=== PATIENT | male | born 1950 | race Caucasian/White ===

== ENCOUNTER 2016-10-15 22:44 | Inpatient (IN) | payer MEDICARE, OTHER ==
[2016-10-15 23:31] LABS: Hematocrit 26.5 % (42.0-52.0); Hemoglobin 9.3 gm/dL (13.5-18.0); Mean Cell Volume 84.7 fl (78-100); Mean Corpuscular Hemoglobin 29.7 pg (27-31); Mean Corpuscular Hgb Conc 35.1 g/dl (32-36); Mean Platelet Volume 7.7 fl (6.0-9.5); Neutrophil # 5.6 K/mm3 (1.3-6.0); Neutrophil % 73.7 % (42-75.0); Platelet Count 253 K/mm3 (150-450); Red Blood Count 3.13 M/mm3 (4.7-6.0); Red Cell Distribution Width 13.6 % (11.5-14.0); White Blood Count 7.6 K/mm3 (4.0-10.5)
[2016-10-15 23:44] LABS: Prothrombin Time (Patient) 10.5 Seconds (9.4-11.4)
[2016-10-15 23:45] LABS: INR 1.01 INR (0.90-1.10); Partial Thrombolplastin Time 28.7 Seconds (24-32)
[2016-10-15] MEDS ORDERED: NORMAL SALINE 1,000 ML IV ONE (23:45)
[2016-10-15 23:47] LABS: Albumin * 3.3 gm/dl (3.4-5.0); Anion Gap 12.9 mmol/L (6.8-13.8); BUN/Creatinine Ratio 16.8 (9.0-21.6); Bilirubin, Total 0.4 mg/dL (0.0-1.1); Ca. Corrected For Albumin 9.1 mg/dL (8.4-10.2); Calcium * 8.9 mg/dL (7.9-10.9); Carbon Dioxide 30.2 mmol/L (24-32.6); Potassium 3.1 mmol/L (3.4-4.6); Total Protein 6.8 gm/dL (6.2-8.2)
[2016-10-16] MEDS ORDERED: NORMAL SALINE 1,000 ML IV ONE ×2 (00:25→02:16)
--- NOTE | 2016-10-16 01:15 | ERNOTE ---
GI Bleeding/Rectal Pain ER Presenting Symptoms: rectal bleeding, dark/tarry stools Time Seen by Provider: 10/15/16 23:25 Source: patient Exam Limitations: no limitations Immunizations: IMMUNIZATION HX Immunizations Up to Date Yes History of Influenza Vaccine Yes Hx Pneumococcal Vaccination Yes Allergies/Adverse Reactions: Allergies lisinopril Allergy (Verified 12/25/14 21:06) pregabalin [From Lyrica] Allergy (Verified 12/25/14 21:06) Home Medications: HOME MEDICATIONS Albuterol Sulfate [Proair Respiclick] 2 puff IH QID PRN 12/25/14 [Last Taken Unknown] Cilostazol [Pletal] 50 mg PO BID 12/25/14 [Last Taken Unknown] Diltiazem HCl [Diltiazem 24Hr Cd] 240 mg PO DAILY 12/25/14 [Last Taken Unknown] HYDROcodone/ACETAMINOPHEN [Hydrocodon-Acetaminophn 10-325] 1 tab PO Q6H PRN [Last Taken Unknown] Pramipexole Di-HCl [Mirapex] 1 mg PO HS 12/25/14 [Last Taken Unknown] Sildenafil Citrate [Viagra] 100 mg PO DAILY PRN 12/25/14 [Last Taken Unknown] Tamsulosin HCl [Flomax] 0.4 mg PO DAILY 12/25/14 [Last Taken Unknown] Losartan/Hydrochlorothiazide [Hyzaar 100-25 Tablet] 1 each PO DAILY 10/15/16 [ Last Taken Unknown] Plavix 75 mg PO DAILY 10/15/16 [Last Taken Unknown] Narrative: pt had sudden onset of bloody diarrhea this evening with dark blood liquid initially then followed by clots after a few BM's this evening Timing: getting worse Quality/Severity: Present: moderate Nausea/Vomiting: Present: none Abdominal Pain: Present: none Rectal Bleeding: Present: without stool - dark and with clots Associated Symptoms: Reports: constipation/hard stools - on occasion Review of Systems - Review of Systems Constitutional: Present: fatigue - for about a week.. Absent: recent illness, fever EYE: Present: no symptoms reported ENT: Present: no symptoms reported Respiratory: Absent: shortness of breath Cardiology: Absent: chest pain Gastrointestinal/Abdominal: Present: See HPI Genitourinary: Absent: frequency, dysuria Musculoskeletal: Absent: back pain, muscle pain Skin: Absent: rash Neurological: Present: dizziness/light-headedness - 1-2 days especially upon standing up Endocrine: Present: no symptoms reported Hematologic/Lymphatic: Absent: easy bruising, easy bleeding Psych: Present: no symptoms reported - Patient's Past Medical History Patient History - Medical: Alcohol Abuse, Chronic Pain, Other Patient History - Cardiac/Respiratory: Hypertension, Peripheral Vascular Disease Patient History - Cancer: No Hx of Cancer Patient History - Surgical Procedures: Back Surgery, Urology - vascular stents bilateral LE one month ago Patient History - Other: None - Family History mom Family History - Medical: , No pertinent hx Family History - Cardiac/Respiratory: No pertinent hx dad Family History - Medical: , No pertinent hx Family History - Cardiac/Respiratory: No pertinent hx - Social History Living Situations: home Abuse History: No History of abuse Psych History: No pertinent hx Smoking Status: Former smoker Have you smoked in the past 12 months: No Alcohol Use: heavy Drug Use: none - Immunizations Immunizations Up to Date: Yes Hx Pneumococcal Vaccination: Yes History of Influenza Vaccine: Yes Physical Exam - Physical Exam General Appearance: Present: wd/wn, alert, no apparent distress Head Exam: Present: normal inspection, no evidence of injury Ears, Nose, Throat: Present: normal ENT inspection Neck: Present: normal inspection, nontender Respiratory: Present: no respiratory distress, normal breath sounds, lungs clear Cardiovascular/Chest: Present: regular rate, rhythm Gastrointestinal/Abdominal: Present: nontender, nondistended, soft, abnormal bowel sounds - hyperactive Back Exam: Present: normal inspection, normal range of motion Extremity Exam: Present: normal inspection, normal range of motion, no edema Neurological Exam: Present: alert, oriented, normal mood/affect, no motor/ sensory deficits Skin Exam: Present: normal color, warm/dry Lymphatic Exam: Present: no adenopathy ED Progress - Results and Orders Patient's Lab Results:: I have reviewed the patient's lab results. Results and Orders: Laboratory Tests 10/15/16 10/15/16 10/15/16 23:25 23:25 23:25 WBC 7.6 Hgb 9.3 L Hct 26.5 L Plt Count 253 PT 10.5 INR (Anticoag Therapy) 1.01 PTT ([place]) 28.7 Sodium 123 L Potassium 3.1 L Chloride 83 L BUN 26 H Creatinine 1.55 H Random Glucose 134 H Calcium 8.9 Total Bilirubin 0.4 AST 97 H ALT 112 H Alkaline Phosphatase 124 Total Protein 6.8 Albumin 3.3 L Urine Color Urine Appearance Urine pH Ur Specific [place] Urine Protein Urine Glucose (UA) Urine Ketones Urine Blood Urine Nitrate Urine Bilirubin Urine Urobilinogen Ur Leukocyte Esterase Urine RBC Urine WBC Ur Epithelial Cells Urine Bacteria Urine Culture Comments 10/16/16 10/16/16 10/16/16 02:50 02:50 03:45 WBC Hgb 8.6 L Hct 24.3 L Plt Count PT INR (Anticoag Therapy) PTT ([place]) Sodium Potassium Chloride BUN Creatinine 1.32 Random Glucose Calcium Total Bilirubin AST ALT Alkaline Phosphatase Total Protein Albumin Urine Color Pale yellow Urine Appearance Slightly cloudy Urine pH 5.5 Ur Specific [place] <=1.005 Urine Protein Negative Urine Glucose (UA) Negative Urine Ketones Negative Urine Blood Negative Urine Nitrate Negative Urine Bilirubin Negative Urine Urobilinogen Normal Ur Leukocyte Esterase 500 H Urine RBC None seen Urine WBC >50 H Ur Epithelial Cells None seen Urine Bacteria 4+ H Urine Culture Comments Culture to follow - Vital Signs Patient's Vital Signs:: I have reviewed the patient's vital signs. Vital Signs: Vital Signs 10/15/16 10/15/16 10/15/16 22:50 23:19 23:46 Temperature 37.3 C Pulse Rate 95 87 92 Respiratory 18 12 12 Rate Blood Pressure 95/67 86/52 73/51 O2 Sat by Pulse 100 96 97 Oximetry 10/16/16 10/16/16 10/16/16 00:00 00:15 00:38 Temperature Pulse Rate 89 85 74 Respiratory 18 18 16 Rate Blood Pressure 77/53 77/45 90/50 O2 Sat by Pulse 97 94 93 Oximetry - CT/Ultrasound CT/Ultrasound Narrative: CT abd/pelvis: coronary artery calcifications Hepatic steatosis Mild bilateral perinephric stranding bilateral fat-containing inguinal hernias R>L scattered colonic diverticula 3 cm ulcer protruding from the posterior wall of the gastric fundus - Progress/Reassessment Chief Complaint: GI Bleed Progress Note-Subjective: 10/16/16 04:41 Spoke with Jesse HERNÁNDEZ hospitalist, she agrees to admit. Departure Clinical Impression: Acute GI bleeding Anemia Qualifiers: Anemia type: other cause Other causes of anemia: acute posthemorrhagic Qualified Code(s): D62 - Acute posthemorrhagic anemia - Departure Disposition: [facility] Condition: Fair
[2016-10-16] MEDS ORDERED: DIATRIZOATE MEGLUMINE, SODIUM 30 ML BTL PO ONE (02:02)
[2016-10-16] MEDS ORDERED: DIATRIZOATE MEGLUMINE, SODIUM 30 ML BTL ONE (02:03)
[2016-10-16 02:55] LABS: Hematocrit 24.3 % (42.0-52.0); Hemoglobin 8.6 gm/dL (13.5-18.0)
[2016-10-16 04:01] LABS: Urine Bilirubin Negative (NEGATIVE); Urine Blood Negative /ul (NEGATIVE); Urine Ketone Negative (NEGATIVE); Urine Nitrite Negative (NEGATIVE); Urine Protein Negative (NEGATIVE); Urine Specific Gravity <=1.005 SP.GR. (1.005-1.030); Urine Urobilinogen Normal (NORMAL); Urine pH 5.5 pH (5.0-7.0)
[2016-10-16 04:08] LABS: Urine Appearance Slightly Cloudy; Urine Color Pale Yellow
[2016-10-16 04:09] LABS: Urine Bacteria 4+; Urine RBC None Seen /hpf (0-5); Urine WBC >50 /hpf (0-5)
[2016-10-16] MEDS ORDERED: PANTOPRAZOLE SODIUM 80 MG in NORMAL SALINE 100 ML IV ONE (04:33)
[2016-10-16] MEDS ORDERED: POTASSIUM CHLORIDE 20 MEQ in NORMAL SALINE 1,000 ML IV SCH (07:00)
[2016-10-16 08:06] LABS: Hematocrit 25.4 % (42.0-52.0); Hemoglobin 8.9 gm/dL (13.5-18.0); Mean Cell Volume 85.2 fl (78-100); Mean Corpuscular Hemoglobin 29.9 pg (27-31); Platelet Count 259 K/mm3 (150-450); Red Blood Count 2.98 M/mm3 (4.7-6.0); Red Cell Distribution Width 13.5 % (11.5-14.0); White Blood Count 6.2 K/mm3 (4.0-10.5)
[2016-10-16 08:59] LABS: Albumin * 3.4 gm/dl (3.4-5.0); Anion Gap 12.1 mmol/L (6.8-13.8); BUN/Creatinine Ratio 21.6 (9.0-21.6); Bilirubin, Total 0.4 mg/dL (0.0-1.1); Ca. Corrected For Albumin 8.5 mg/dL (8.4-10.2); Calcium * 8.3 mg/dL (7.9-10.9); Carbon Dioxide 28.9 mmol/L (24-32.6); Total Protein 6.5 gm/dL (6.2-8.2)
[2016-10-16] MEDS ORDERED: THIAMINE HCL 100 MG TABLET PO SCH (09:00)
[2016-10-16] MEDS ORDERED: MULTIVITAMINS 1 CAP CAPSULE PO SCH (09:00)
[2016-10-16] MEDS ORDERED: NICOTINE 21 MG PATC TD SCH (09:00)
[2016-10-16 09:05] LABS: Magnesium 1.1 mg/dL (1.2-2.8); Phosphorus 3.2 mg/dL (2.2-4.2)
[2016-10-16] MEDS ORDERED: [UNRECOGNIZED DRUG - OTHER] IV SCH ×5 (09:30)
[2016-10-16] MEDS ORDERED: [UNRECOGNIZED DRUG - OTHER] IV SCH ×5 (09:30)
[2016-10-16] MEDS ORDERED: THIAMINE HCL IV SCH ×10 (09:30)
[2016-10-16] MEDS ORDERED: MULTIVIT INFUSN ADULT K IV SCH ×10 (09:30)
[2016-10-16] MEDS ORDERED: FOLIC ACID IV SCH ×10 (09:30)
[2016-10-16] MEDS ORDERED: LORazepam 2 MG/ML DISP.SYRIN IV PRN ×3 (09:37)
[2016-10-16] MEDS ORDERED: FOLIC ACID 1 MG TABLET PO STA (09:37)
--- NOTE | 2016-10-16 09:59 | HP ---
Chief Complaint - Chief Complaint Date of Service: 10/16/16 Time of Service: 09:20 Chief Complaint: rectal bleeding History of Present Illness: Erick is a 66 year old male with a PMH of etoh abuse, chronic pain, HTN, and PVD who presented to the ER with c/o black stools since the previous afternoon with dizziness and fatigue. denies cp, dyspnea. history heavy etoh use - 6 to 8 beers a day since the age of 19. SBP dropp to 77 in the ER, improved after 2L bolus. denies any prior history of gi bleed or blood in stool. denies any prior upper or lower scopes. denies vomiting blood. ER evaluation revealed hgb drop from 9.3 --> 8.6. wbc wnl. BUN/cr at 26/1.55. recheck creatinine after 2 liter bolus was 1.32. UA positive for 500 leukocytes, WBC >50, and 4+ bacteria. AST/ALT 97/112. CT abdomen/pelvis showed hepatic steatosis with mild hepatomegaly, 1-2 mm possible non obstructing calculus lower lobe right kidney, small fundal gastric diverticulum, no evidence of a protruding gastric ulcer (prelim read by [facility] radiology as seen a 2-3 cm protruding gastric ulcer) , scattered left diverticulosis with no evidence of diverticulitis, mild urinary bladder wall thickening c/w cystitis and no free fluid. Patient to be admitted for an acute GI bleed. - Patient's Past Medical History Patient History - Medical: Alcohol Abuse, Chronic Pain, Other Patient History - Cardiac/Respiratory: Hypertension, Peripheral Vascular Disease Patient History - Cancer: No Hx of Cancer Patient History - Surgical Procedures: Back Surgery, Urology - vascular stents bilateral LE one month ago Patient History - Other: None - Family History mom Family History - Medical: , No pertinent hx Family History - Cardiac/Respiratory: No pertinent hx Family History - Cancer: No pertinent family hx dad Family History - Medical: , No pertinent hx Family History - Cardiac/Respiratory: No pertinent hx Family History - Cancer: No pertinent family hx - Social History Living Situations: home Abuse History: No History of abuse Psych History: No pertinent hx Smoking Status: Former smoker Have you smoked in the past 12 months: No Do you dip or chew tobacco: No Patient requests Smoking Cessation Consult: No Initiate information on Smoking Cessation: No Alcohol Use: heavy Drug Use: none - Immunizations Immunizations Up to Date: Yes Hx Pneumococcal Vaccination: Yes History of Influenza Vaccine: Yes Review Of Systems (GEN) - Review of Systems Generalized/Overall Review: Present: Weakness, Fatigue. Absent: Chills, Fever EENTM: Present: No Symptoms Reported Respiratory: Present: No Symptoms Reported Cardiac: Present: No Symptoms Reported Abdominal: Present: Nausea, Abdominal Pain, Diarrhea. Absent: Vomiting, Hematemesis, Constipation, Bright blood from rectum Genitourinary: Present: No Symptoms Reported Musculoskeletal: Present: No Symptoms Reported Neurological: Present: No Symptoms Reported Skin: Present: No Symptoms Reported Endocrine: Present: No Symptoms Reported Misc: All systems neg except as marked Immunizations: IMMUNIZATION HX Immunizations Up to Date Yes History of Influenza Vaccine Yes Hx Pneumococcal Vaccination Yes Allergies/Adverse Reactions: Allergies Allergy/AdvReac Type Severity Reaction Status Date / Time lisinopril Allergy Verified 12/25/14 21:06 pregabalin [From Lyrica] Allergy Verified 12/25/14 21:06 Home Medications: HOME MEDICATIONS Albuterol Sulfate [Proair Respiclick] 2 puff IH QID PRN 12/25/14 [Last Taken Unknown] Cilostazol [Pletal] 50 mg PO BID 12/25/14 [Last Taken Unknown] Diltiazem HCl [Diltiazem 24Hr Cd] 240 mg PO DAILY 12/25/14 [Last Taken Unknown] HYDROcodone/ACETAMINOPHEN [Hydrocodon-Acetaminophn 10-325] 1 tab PO Q6H PRN [Last Taken Unknown] Pramipexole Di-HCl [Mirapex] 1 mg PO HS 12/25/14 [Last Taken Unknown] Sildenafil Citrate [Viagra] 100 mg PO DAILY PRN 12/25/14 [Last Taken Unknown] Tamsulosin HCl [Flomax] 0.4 mg PO DAILY 12/25/14 [Last Taken Unknown] Clopidogrel Bisulfate [Plavix] 75 mg PO DAILY 10/15/16 [Last Taken Unknown] Losartan/Hydrochlorothiazide [Hyzaar 100-25 Tablet] 1 each PO DAILY 10/15/16 [ Last Taken Unknown] Exam - Exam Vital Signs: Vital Signs - Last Taken Temp 36.8 C 10/16/16 05:11 Pulse 84 10/16/16 05:11 Resp 14 10/16/16 05:11 BP 107/57 10/16/16 05:11 Pulse Ox 96 10/16/16 05:11 Constitutional: Present: Alert, Cooperative, Other - anxious ENT Exam: Present: hearing grossly normal Eye Exam: bilateral eye: normal inspection Neck: Present: full range of motion, supple Breasts: Present: Exam deferred Respiratory: Present: lungs clear, normal breath sounds Cardiovascular/Chest: Present: regular rate, rhythm, no chest tenderness Peripheral Pulses: carotid (R): 2+, carotid (L): 2+, radial (R): 2+, radial (L) : 2+ Abdomen: Present: soft, nontender, nondistended /Rectal: Present: Exam deferred Extremity: Present: non-tender, normal inspection, no calf tenderness Skin Exam: Present: warm/dry, no cyanosis, pallor Diagnostic Studies: Abnormal Lab Results 10/16/16 10/16/16 10/16/16 Range/Units 07:58 08:25 08:25 RBC 2.98 L (4.7-6.0) M/mm3 Hgb 8.9 L (13.5-18.0) gm/dL Hct 25.4 L (42.0-52.0) % Sodium 127 L (132-142) mmol/L Plasma Sodium 127 L (130-142) mmol/L Potassium 3.0 L (3.4-4.6) mmol/L Chloride 89 L (97-106) mmol/L Random Glucose 111 H (70-110) mg/dL Magnesium 1.1 L (1.2-2.8) mg/dL AST 86 H (0-48) U/L ALT 107 H (19-67) U/L Laboratory Results WBC 6.2 K/mm3 (4.0-10.5) 10/16/16 07:58 RBC 2.98 M/mm3 (4.7-6.0) L 10/16/16 07:58 Hgb 8.9 gm/dL (13.5-18.0) L 10/16/16 07:58 Hct 25.4 % (42.0-52.0) L 10/16/16 07:58 MCV 85.2 fl (78-100) 10/16/16 07:58 MCH 29.9 pg (27-31) 10/16/16 07:58 MCHC 35.0 g/dl (32-36) 10/16/16 07:58 RDW 13.5 % (11.5-14.0) 10/16/16 07:58 Plt Count 259 K/mm3 (150-450) 10/16/16 07:58 MPV 8.0 fl (6.0-9.5) 10/16/16 07:58 Immature Gran % (Auto) 0.70 % (0.001-0.429) H 10/15/16 23:25 Immature Gran # (Auto) 0.05 K/mm3 (0.000-0.0310) H 10/15/16 23:25 Neutrophils % 73.7 % (42-75.0) 10/15/16 23:25 Lymphocytes % 13.4 % (20-51) L 10/15/16 23:25 Monocytes % 11.4 % (0.0-9) H 10/15/16 23:25 Eosinophils % 0.5 % (0.0-3.0) 10/15/16 23: Basophils % 0.3 % (0.0-1.0) 10/15/16 23:25 Nucleated RBC % 0.0 k/mm3 (0-1) 10/15/16 23:25 Neutrophils # 5.6 K/mm3 (1.3-6.0) 10/15/16 23:25 Lymphocytes # 1.0 k/mm3 (1.5-3.5) L 10/15/16 23:25 Monocytes # 0.9 k/mm3 (0.0-1.0) 10/15/16 23:25 Eosinophils # 0.0 k/mm3 (0.0-0.7) 10/15/16 23:25 Absolute Basophils 0.0 k/mm3 (0.0-0.1) 10/15/16 23:25 PT 10.5 Seconds (9.4-11.4) 10/15/16 23:25 INR (Anticoag Therapy) 1.01 INR (0.90-1.10) 10/15/16 23:25 PTT ([place]) 28.7 Seconds (24-32) 10/15/16 23:25 Sodium 127 mmol/L (132-142) L 10/16/16 08:25 Plasma Sodium 127 mmol/L (130-142) L 10/16/16 08:25 Potassium 3.0 mmol/L (3.4-4.6) L 10/16/16 08:25 Chloride 89 mmol/L (97-106) L 10/16/16 08:25 Carbon Dioxide 28.9 mmol/L (24-32.6) 10/16/16 08:25 Anion Gap 12.1 mmol/L (6.8-13.8) 10/16/16 08:25 BUN 22 mg/dL (6-23) 10/16/16 08:25 Creatinine 1.02 mg/dL (0.4-1.4) 10/16/16 08:25 Est GFR (Non-Af Amer) 78 mL/min (60-130) D 10/16/16 08:25 BUN/Creatinine Ratio 21.6 (9.0-21.6) 10/16/16 08:25 Random Glucose 111 mg/dL (70-110) H 10/16/16 08:25 Calcium 8.3 mg/dL (7.9-10.9) 10/16/16 08:25 Calcium Adj for Albumin 8.5 mg/dL (8.4-10.2) 10/16/16 08:25 Phosphorus 3.2 mg/dL (2.2-4.2) 10/16/16 08:25 Magnesium 1.1 mg/dL (1.2-2.8) L 10/16/16 08:25 Total Bilirubin 0.4 mg/dL (0.0-1.1) 10/16/16 08:25 AST 86 U/L (0-48) H 10/16/16 08:25 ALT 107 U/L (19-67) H 10/16/16 08:25 Alkaline Phosphatase 127 U/L (50-170) 10/16/16 08:25 Total Protein 6.5 gm/dL (6.2-8.2) 10/16/16 08:25 Albumin 3.4 gm/dl (3.4-5.0) 10/16/16 08:25 Urine Color Pale yellow 10/16/16 03:45 Urine Appearance Slightly cloudy 10/16/16 03:45 Urine pH 5.5 pH (5.0-7.0) 10/16/16 03:45 Ur Specific [place] <=1.005 SP.GR. (1.005-1.030) 10/16/16 03:45 Urine Protein Negative mg/dL (NEGATIVE) 10/16/16 03:45 Urine Glucose (UA) Negative mg/dL (NEGATIVE) 10/16/16 03:45 Urine Ketones Negative mg/dL (NEGATIVE) 10/16/16 03:45 Urine Blood Negative /ul (NEGATIVE) 10/16/16 03:45 Urine Nitrate Negative (NEGATIVE) 10/16/16 03:45 Urine Bilirubin Negative mg/dl (NEGATIVE) 10/16/16 03:45 Urine Urobilinogen Normal EU/dl (NORMAL) 10/16/16 03:45 Ur Leukocyte Esterase 500 /ul (NEGATIVE) H 10/16/16 03:45 Urine RBC None seen /hpf (0-5) 10/16/16 03:45 Urine WBC >50 /hpf (0-5) H 10/16/16 03:45 Ur Epithelial Cells None seen /hpf (0-5) 10/16/16 03:45 Urine Bacteria 4+ (NONE) H 10/16/16 03:45 Urine Culture Comments Culture to follow 10/16/16 03:45 Blood Type O Positive 10/15/16 23:25 Antibody Screen Negative 10/15/16 23:25 Assessment/Plan - Narrative Narrative: Acute GI bleeding - likely upper GI bleed due to patient description - patient states that blood in stool has stopped - stated last night he was "filling toilet with blood" - concern for clot formation over area of bleed - protonix 40 mg iv q 24 hours - keep NPO for possible EGD / colonscopy. - consult general surgery - already notified prior to admission by ERP - may have ice chips - likely secondary to chronic etoh abuse hyponatremia - likely secondary to etoh abuse - continue iv fluids - recheck labs in am. KELLEY seconday to hypovolemia - resolved after 2 liters iv fluids in ER - recheck labs in am. Hypokalemia - secondary to etoh abuse and poor dietary intake - supplement in iv fluids - recheck labs in am. etoh abuse - patient does not seem to willing to cut back or stop his etoh use at his time - nor does he seem to think he drink is a problem. - will order banana bag with mvi, folate, and K+ - etoh withdrawal protocol ordered with seizure precautions - check mg and phos - monitor CIWA while admitted UTI - start abx - rocephin 1 gm iv - Day #1 - await urine culture. Code status: Full Code VTE: early ambulation GI Proph: IV protonix. - Assessment/Plan (1) Acute GI bleeding Problem: Acute (2) Acute renal injury due to hypovolemia Problem: Acute (3) Acute hyponatremia Problem: Acute (4) Alcohol abuse Problem: Acute (5) Hypokalemia Problem: Acute
[2016-10-16] MEDS ORDERED: SULFAMETHOXAZOLE/TRIMETHOPRIM 1 TAB TABLET PO SCH (10:00)
[2016-10-16 11:07] VITALS: BP 185/92
--- NOTE | 2016-10-16 14:24 | DS ---
(1) Acute GI bleeding Problem: Acute (2) Acute hyponatremia Problem: Acute (3) Acute renal injury due to hypovolemia Problem: Acute (4) Alcohol abuse Problem: Acute (5) Hypokalemia Problem: Acute Description of Stay: Erick is a 66 year old male with a PMH of etoh abuse, chronic pain, HTN, and PVD who presented to the ER with c/o black stools since the previous afternoon with dizziness and fatigue. denies cp, dyspnea. history heavy etoh use - 6 to 8 beers a day since the age of 19. SBP dropp to 77 in the ER, improved after 2L bolus. denies any prior history of gi bleed or blood in stool. denies any prior upper or lower scopes. denies vomiting blood. ER evaluation revealed hgb drop from 9.3 --> 8.6. wbc wnl. BUN/cr at 26/1.55. recheck creatinine after 2 liter bolus was 1.32. UA positive for 500 leukocytes, WBC >50, and 4+ bacteria. AST/ALT 97/112. CT abdomen/pelvis showed hepatic steatosis with mild hepatomegaly, 1-2 mm possible non obstructing calculus lower lobe right kidney, small fundal gastric diverticulum, no evidence of a protruding gastric ulcer (prelim read by [email or web address] radiology as seen a 2-3 cm protruding gastric ulcer) , scattered left diverticulosis with no evidence of diverticulitis, mild urinary bladder wall thickening c/w cystitis and no free fluid. Patient to be admitted for an acute GI bleed. Patient was admitted to the unit and the following plan was initiated: Acute GI bleeding - likely upper GI bleed due to patient description - patient states that blood in stool has stopped - stated last night he was "filling toilet with blood" - concern for clot formation over area of bleed - protonix 40 mg iv q 24 hours - keep NPO for possible EGD / colonscopy. - consult general surgery - already notified prior to admission by ERP - may have ice chips - likely secondary to chronic etoh abuse hyponatremia - likely secondary to etoh abuse - continue iv fluids - recheck labs in am. KELLEY seconday to hypovolemia - resolved after 2 liters iv fluids in ER - recheck labs in am. Hypokalemia - secondary to etoh abuse and poor dietary intake - supplement in iv fluids - recheck labs in am. etoh abuse - patient does not seem to willing to cut back or stop his etoh use at his time - nor does he seem to think he drink is a problem. - will order banana bag with mvi, folate, and K+ - etoh withdrawal protocol ordered with seizure precautions - check mg and phos - monitor CIWA while admitted UTI - start abx - rocephin 1 gm iv - Day #1 - await urine culture. Around midday, after the patient had been seen and assessed, the patient indicated to nursing staff that he did not want to wait around any longer. I spoke with patient and informed him the risks of leaving AMA, including but not limited to spontaneous GI hemorrhage at any moment. I urged the patient to stay but he refused. He left AMA before the surgeon could see him. AMA paper was signed in the presence of nursing staff. Procedures Performed: none Discharge Disposition: AMA Disposition: Against medical advice Condition: Undetermined Referrals: Armen Parker, [Primary Care Provider] - Complete Home Medications List: Complete Home Medication List: Albuterol Sulfate [Proair Respiclick] 2 puff IH QID PRN 12/25/14 Cilostazol [Pletal] 50 mg PO BID 12/25/14 Diltiazem HCl [Diltiazem 24Hr Cd] 240 mg PO DAILY 12/25/14 HYDROcodone/ACETAMINOPHEN [Hydrocodon-Acetaminophn 10-325] 1 tab PO Q6H PRN Pramipexole Di-HCl [Mirapex] 1 mg PO HS 12/25/14 Sildenafil Citrate [Viagra] 100 mg PO DAILY PRN 12/25/14 Tamsulosin HCl [Flomax] 0.4 mg PO DAILY 12/25/14 Clopidogrel Bisulfate [Plavix] 75 mg PO DAILY 10/15/16 Losartan/Hydrochlorothiazide [Hyzaar 100-25 Tablet] 1 each PO DAILY 10/15/16
[2016-10-17] MEDS ORDERED: PANTOPRAZOLE SODIUM 40 MG in NORMAL SALINE 100 ML IV SCH (07:00)
== END 2016-10-16 13:30 | disposition left against medical advice (07) | DRG 378 ==
LOC: ER 22:44 → MS 10-16 04:39
PROVIDERS: ADMIT Nurse Practitioner; ATTEND Family Medicine
PROC: HZ2ZZZZ Detoxification Services for Substance Abuse Treatment (ICD-10-PCS; principal; 2016-10-16)
DX: K92.2 Gastrointestinal hemorrhage, unspecified (principal); E87.1 Hypo-osmolality and hyponatremia; N17.9 Acute kidney failure, unspecified; E87.6 Hypokalemia; E86.1 Hypovolemia; I10 Essential (primary) hypertension; F10.10 Alcohol abuse, uncomplicated

== ENCOUNTER 2018-10-15 02:11 | Inpatient (IN) ==
[2018-10-15] MEDS ORDERED: ALBUTEROL SULFATE 2.5 MG/0.5 ML VIAL.NEB IH ONE (02:21)
--- NOTE | 2018-10-15 02:28 | ERNOTE ---
Dyspnea - General Presenting Symptoms: shortness of breath Time Seen by Provider: 10/15/18 02:16 Source: patient, family Exam Limitations: no limitations - Immun/Allergies/Home Medications Immunizations: IMMUNIZATION HX Immunizations Up to Date Yes History of Influenza Vaccine Yes Hx Pneumococcal Vaccination Yes Allergies/Adverse Reactions: Allergies lisinopril Allergy (Verified 12/25/14 21:06) pregabalin [From Lyrica] Allergy (Verified 12/25/14 21:06) oxycodone [From Percocet] Adverse Reaction (Verified 10/15/18 02:24) Nausea Home Medications: HOME MEDICATIONS Albuterol Sulfate [Ventolin HFA] 1 puff INHALATION QID 10/15/18 [Last Taken Unknown] Aspirin [Aspirin Enteric Coated] 325 mg PO DAILY 10/15/18 [Last Taken Unknown] Clopidogrel Bisulfate [Plavix] 75 mg PO DAILY 10/15/18 [Last Taken Unknown] Furosemide [Lasix] 40 mg PO BID 10/15/18 [Last Taken Unknown] HYDROcodone/ACETAMINOPHEN [[place] 5-325] 1 tab PO Q6H PRN 10/15/18 [Last Taken Unknown] Levofloxacin [Levaquin] 500 mg PO DAILY 10/15/18 [Last Taken Unknown] Multivitamin [One Daily] 1 tab PO DAILY 10/15/18 [Last Taken Unknown] Potassium Chloride [K-Tab ER] 20 meq PO DAILY 10/15/18 [Last Taken Unknown] Pramipexole Di-HCl [Pramipexole Dihydrochloride] 1 mg PO HS 10/15/18 [Last Taken Unknown] Saccharomyces Boulardii [Florastor] 250 mg PO BID 10/15/18 [Last Taken Unknown] predniSONE [Prednisone] 2 tab PO DAILY 10/15/18 [Last Taken Unknown] - History of Present Illness Narrative: Patient states he was just released from [facility] yesterday. This evening he began to have the more short of breath and have a cough. Severity: moderate Initiating event: Reports: unknown Modifying Factors - (Improves): Reports: oxygen, rest Modifying Factors (Worsens): Reports: activity Associated Symptoms-Dyspnea: Reports: cough. Denies: chest pain/discomfort Prior Treatment: Reports: recently seen, recently hospitalized Review of Systems - Review of Systems Constitutional: Present: recent illness, fatigue. Absent: fever, chills EYE: Absent: vision changes ENT: Absent: nose congestion, nasal drainage Respiratory: Present: shortness of breath, cough, orthopnea Cardiology: Absent: chest pain, palpitations Gastrointestinal/Abdominal: Present: other - bloating. Absent: nausea, vomiting Musculoskeletal: Absent: back pain, muscle pain Skin: Absent: rash Endocrine: Absent: excessive sweating Medical History (Updated 10/15/18 @ 03:48 by Salvatore Yanes DO) CHF (congestive heart failure) COPD (chronic obstructive pulmonary disease) Colon cancer Hx of acute respiratory failure Lung mass Pneumonia Syncope Surgical History: Surgical History (Updated 10/15/18 @ 02:23 by Mila Gay RN) History of colon surgery Family History: Family History (Updated 10/15/18 @ 02:24 by Mila Gay RN) Other No pertinent family history Social History: (Last Reviewed 10/15/18 @ 02:25 by Salvatore Yanes DO) Tobacco: Smoking Status: Former smoker Physical Exam - Physical Exam General Appearance: Present: wd/wn, alert, mild distress, moderate distress Head Exam: Present: normal inspection, no evidence of injury Neck: Present: normal inspection, nontender, supple Respiratory: Present: respiratory distress, crackles, wheezing Cardiovascular/Chest: Present: no murmur, tachycardia Gastrointestinal/Abdominal: Present: nondistended, soft Back Exam: Present: normal inspection, normal range of motion, no vertebral tenderness Extremity Exam: Present: normal inspection, non-tender, normal range of motion, no edema Neurological Exam: Present: alert, oriented, no motor/sensory deficits Skin Exam: Present: normal color, warm/dry Lymphatic Exam: Present: no adenopathy Progress - Results and Orders Patient's Lab Results:: I have reviewed the patient's lab results. Results and Orders: Laboratory Tests 10/15/18 10/15/18 10/15/18 02:40 02:40 02:40 WBC 18.9 H Hgb 11.0 L Hct 34.9 L Plt Count 469 H pCO2 pO2 Total CO2 ABG pH ABG O2 Sat (Measured) Sodium 142 Potassium 3.9 Chloride 103 BUN 44 H D Creatinine 1.26 BUN/Creatinine Ratio 34.9 H Random Glucose 120 H Lactic Acid, Venous 2.1 H Calcium 7.7 L AST 62 H ALT 71 H Alkaline Phosphatase 146 Troponin I 0.059 B-Natriuretic Peptide 95323 H 10/15/18 03:15 WBC Hgb Hct Plt Count pCO2 32.3 L pO2 70.2 L Total CO2 24.5 H ABG pH 7.48 H ABG O2 Sat (Measured) 95.3 Sodium Potassium Chloride BUN Creatinine BUN/Creatinine Ratio Random Glucose Lactic Acid, Venous Calcium AST ALT Alkaline Phosphatase Troponin I B-Natriuretic Peptide - Vital Signs Patient's Vital Signs:: I have reviewed the patient's vital signs. Vital Signs: Vital Signs 10/15/18 02:15 Temperature 36.3 C Pulse Rate 117 H Respiratory Rate 25 H Blood Pressure 135/87 O2 Sat by Pulse Oximetry 89 L - EKG EKG #1 EKG: NSR, premature ventricular contraction, RBBB EKG read: Interp. by me - X-Ray X-Ray #1 X-Ray: chest Interpretation: Interp. by me X-ray Comments: Moderate pulmonary edema bilaterally. Left lower lobe infiltrate not seen on previous chest x-ray. - Progress/Reassessment Chief Complaint: Dyspnea Progress:: Improved Progress Note-Subjective: 10/15/18 03:[address] Villegas he agrees with admission. Departure Clinical Impression: Pneumonia Qualifiers: Pneumonia type: due to unspecified organism Laterality: left Lung location: lower lobe of lung Qualified Code(s): J18.1 - Lobar pneumonia, unspecified organism CHF (congestive heart failure) Qualifiers: Heart failure type: systolic Heart failure chronicity: acute on chronic Qualified Code(s): I50.23 - Acute on chronic systolic (congestive) heart failure COPD (chronic obstructive pulmonary disease) Qualifiers: COPD type: COPD with acute lower respiratory infection Qualified Code(s): J44.0 - Chronic obstructive pulmonary disease with acute lower respiratory infection - Departure Disposition: Still a patient Condition: Fair
[2018-10-15 02:47] LABS: Hematocrit 34.9 % (42.0-52.0); Mean Cell Volume 89.7 fl (78-100); Mean Corpuscular Hemoglobin 28.3 pg (27-31); Mean Corpuscular Hgb Conc 31.5 g/dl (32-36); Platelet Count 469 K/mm3 (150-450); Red Blood Count 3.89 M/mm3 (4.7-6.0); Red Cell Distribution Width 14.9 % (11.5-14.0); White Blood Count 18.9 K/mm3 (4.0-10.5)
[2018-10-15 02:52] LABS: Total Cells Counted 100
[2018-10-15 03:02] LABS: Albumin * 2.6 gm/dl (3.4-5.0); Anion Gap 17.5 mmol/L (6.8-13.8); BUN/Creatinine Ratio 34.9 (9.0-21.6); Bilirubin, Total 0.3 mg/dL (0.0-1.1); Ca. Corrected For Albumin 8.5 mg/dL (8.4-10.2); Calcium * 7.7 mg/dL (7.9-10.9); Carbon Dioxide 25.4 mmol/L (24-32.6); Potassium 3.9 mmol/L (3.4-4.6); Total Protein 7.2 gm/dL (6.2-8.2)
[2018-10-15 03:05] LABS: Troponin I 0.059 ng/mL (0.00-0.10)
[2018-10-15 03:08] LABS: Atypical (Reactive) Lymph 1 % (0-2); Immature Granulocyte 1 (0-1); Lymphocyte 19 % (20-51); Monocyte 6 % (0-9); Neutrophil 73 % (42-75); Neutrophil # 13.8 K/mm3 (1.3-6.0)
[2018-10-15 03:10] LABS: Dohle Bodies Trace
[2018-10-15] MEDS ORDERED: FUROSEMIDE 10 MG/ML VIAL IV ONE (03:30)
[2018-10-15] MEDS ORDERED: CEFEPIME HCL 1 GM/100 ML BAG IV ONE (03:41)
[2018-10-15] MEDS ORDERED: VANCOMYCIN HCL 1 GM in DEXTROSE 5 % IN WATER 250 ML IV ONE ×2 (03:41)
[2018-10-15] MEDS ORDERED: HYDROcodone/ACETAMINOPHEN 1 EACH TABLET PO PRN (08:23)
[2018-10-15] MEDS ORDERED: CEFEPIME HCL 1 GM in DEXTROSE 5 % IN WATER 100 ML IV SCH ×2 (08:30)
[2018-10-15] MEDS ORDERED: ALBUTEROL SULFATE/IPRATROPIUM 3 ML NEBU IH PRN (08:32)
--- NOTE | 2018-10-15 08:34 | HP ---
Chief Complaint - Chief Complaint Date of Service: 10/15/18 Time of Service: 08:09 Chief Complaint: shortness of breath History of Present Illness: Erick White is a 68-year-old white male, patient of Dr. Shelton in [place], with past medical history of hypertension, peripheral vascular disease, who was admitted on 10/15/2018 because of increasing shortness of breath. 15 days prior to admission the patient recently had a colon resection for colon cancer with end-to-end anastomosis. 5 days prior to admission the patient started having increasing shortness of breath with some cough associated with wheezing. The patient went to our emergency room and was transferred to [facility] where he was admitted and discharged after 3 to 4days after being diuresed with Lasix and treated with antibiotic for CHF and pneumonia. Patient said he was discharged on prednisone, Levaquin, and on his albuterol inhaler. One day prior to admission the patient started again to have shortness of breath and so he went back to our emergency room were he was needing 4 L of oxygen to keep his oxygen saturation in the 90s. His ABG showed 7.48/32.3/70.2/23.5/95% on 4 L NC. His checks x-ray showed worsening of his pulmonary vascular conge stion suggestive of pulmonary edema but cannot rule out also multifocal pneumonia. His white blood cell count was 18,000. He denied fever,, chills, chest pain, palpitations but admits to orthopnea. He admits to weight gain but denies any leg edema. He was then admitted for further treatment. Medical History (Updated 10/15/18 @ 08:34 by Rosalinda Villegas MD) CHF (congestive heart failure) COPD (chronic obstructive pulmonary disease) Colon cancer FH: carotid endarterectomy Hx of acute respiratory failure Lung mass Pneumonia Syncope Surgical History: Surgical History (Updated 10/15/18 @ 02:33 by Mila Gay RN) History of back surgery History of colon surgery Family History: Family History (Last Reviewed 10/15/18 @ 04:48 by Sara Campbell RN) Brother No pertinent family history Hypertension Mother Hypertension Father Hypertension Other Cancer Social History: (Last Reviewed 10/15/18 @ 04:49 by Sara Campbell RN) Social History: Marital status: lives independently: Yes household members: none number of children: 2 number of grandchildren: 2 caregiver/support person: Yes caregivers: other parent marital status: current occupational status: retired Highest education level completed: high school graduate Service: Yes branch: [employer] Tobacco: Smoking Status: Former smoker Alcohol: alcohol intake frequency: holiday/special occasion Substance Use: substance use type: does not use Fidelina/Hindu: fidelina/islam: Confucianism Review Of Systems (GEN) - Review of Systems Generalized/Overall Review: Present: Weight gain. Absent: Weakness, Chills, Fever EENTM: Absent: Blurred Vision, Double Vision Respiratory: Present: Cough, Shortness of Breath, Orthopnea, Wheezing Cardiac: Absent: Chest Pain, Edema, Palpitations Abdominal: Absent: Nausea, Vomiting, Abdominal Pain Genitourinary: Absent: Urgency, Frequency Musculoskeletal: Absent: Joint Pain, Back Pain Neurological: Absent: Headache, Seizure Skin: Absent: Lesions, Rash Endocrine: Absent: Intolerance to Cold, Intolerance to Heat Misc: All systems neg except as marked Immunizations: IMMUNIZATION HX Immunizations Up to Date Yes History of Influenza Vaccine Yes Hx Pneumococcal Vaccination Yes Allergies/Adverse Reactions: Allergies Allergy/AdvReac Type Severity Reaction Status Date / Time lisinopril Allergy Verified 12/25/14 21:06 pregabalin [From Lyrica] Allergy Verified 12/25/14 21:06 oxycodone [From Percocet] AdvReac Nausea Verified 10/15/18 02:24 Home Medications: HOME MEDICATIONS Albuterol Sulfate [Ventolin HFA] 1 puff INHALATION QID 10/15/18 [Last Taken Unknown] Aspirin [Aspirin Enteric Coated] 325 mg PO DAILY 10/15/18 [Last Taken Unknown] Clopidogrel Bisulfate [Plavix] 75 mg PO DAILY 10/15/18 [Last Taken Unknown] Furosemide [Lasix] 40 mg PO BID 10/15/18 [Last Taken Unknown] HYDROcodone/ACETAMINOPHEN [[place] 5-325] 1 tab PO Q6H PRN 10/15/18 [Last Taken Unknown] Levofloxacin [Levaquin] 500 mg PO DAILY 10/15/18 [Last Taken Unknown] Multivitamin [One Daily] 1 tab PO DAILY 10/15/18 [Last Taken Unknown] Potassium Chloride [K-Tab ER] 20 meq PO DAILY 10/15/18 [Last Taken Unknown] Pramipexole Di-HCl [Pramipexole Dihydrochloride] 1 mg PO HS 10/15/18 [Last Taken Unknown] Saccharomyces Boulardii [Florastor] 250 mg PO BID 10/15/18 [Last Taken Unknown] predniSONE [Prednisone] 2 tab PO DAILY 10/15/18 [Last Taken Unknown] Exam - Exam Vital Signs: Vital Signs - Last Taken Temp 36.3 C 10/15/18 04:34 Pulse 90 10/15/18 04:34 Resp 20 10/15/18 04:34 BP 112/86 10/15/18 04:34 Pulse Ox 92 L 10/15/18 04:34 Constitutional: Present: Alert, Oriented x3, Cooperative ENT Exam: Present: hearing grossly normal Eye Exam: bilateral eye: normal inspection, PERRL, EOMI Neck: Present: supple. Absent: lymphadenopathy (R), lymphadenopathy (L) Respiratory: Present: decreased breath sounds, rales - Is, wheezing Cardiovascular/Chest: Present: regular rate, rhythm, no murmur, JVD Abdomen: Present: Normal bowel sounds, soft, nontender, nondistended Extremity: Present: no calf tenderness. Absent: lower extremity edema Diagnostic Studies: Abnormal Lab Results 10/15/18 10/15/18 10/15/18 Range/Units 02:40 02:40 02:40 WBC 18.9 H (4.0-10.5) K/mm3 RBC 3.89 L (4.7-6.0) M/mm3 Hgb 11.0 L (13.5-18.0) gm/dL Hct 34.9 L (42.0-52.0) % MCHC 31.5 L (32-36) g/dl RDW 14.9 H (11.5-14.0) % Plt Count 469 H (150-450) K/mm3 Lymphocytes % (Manual) 19 L (20-51) % Neutrophils # (Manual) 13.8 H (1.3-6.0) K/mm3 Lymphocytes # (Manual) 3.6 H (1.5-3.5) k/mm3 Monocytes # (Manual) 1.1 H (0.0-1.0) k/mm3 pCO2 (35.0-48.0) mmHg pO2 (83.0-108.0) mmHg Total CO2 (19.0-24.0) mmol/L ABG pH (7.35-7.45) Anion Gap 17.5 H (6.8-13.8) mmol/L BUN 44 H D (6-23) mg/dL BUN/Creatinine Ratio 34.9 H (9.0-21.6) Random Glucose 120 H (70-110) mg/dL Lactic Acid, Venous 2.1 H (0.4-2.0) mmol/L Calcium 7.7 L (7.9-10.9) mg/dL AST 62 H (0-48) U/L ALT 71 H (19-67) U/L B-Natriuretic Peptide 45857 H (5-350) pg/mL Albumin 2.6 L (3.4-5.0) gm/dl 10/15/18 Range/Units 03:15 WBC (4.0-10.5) K/mm3 RBC (4.7-6.0) M/mm3 Hgb (13.5-18.0) gm/dL Hct (42.0-52.0) % MCHC (32-36) g/dl RDW (11.5-14.0) % Plt Count (150-450) K/mm3 Lymphocytes % (Manual) (20-51) % Neutrophils # (Manual) (1.3-6.0) K/mm3 Lymphocytes # (Manual) (1.5-3.5) k/mm3 Monocytes # (Manual) (0.0-1.0) k/mm3 pCO2 32.3 L (35.0-48.0) mmHg pO2 70.2 L (83.0-108.0) mmHg Total CO2 24.5 H (19.0-24.0) mmol/L ABG pH 7.48 H (7.35-7.45) Anion Gap (6.8-13.8) mmol/L BUN (6-23) mg/dL BUN/Creatinine Ratio (9.0-21.6) Random Glucose (70-110) mg/dL Lactic Acid, Venous (0.4-2.0) mmol/L Calcium (7.9-10.9) mg/dL AST (0-48) U/L ALT (19-67) U/L B-Natriuretic Peptide (5-350) pg/mL Albumin (3.4-5.0) gm/dl Laboratory Results WBC 18.9 K/mm3 (4.0-10.5) H 10/15/18 02:40 RBC 3.89 M/mm3 (4.7-6.0) L 10/15/18 02:40 Hgb 11.0 gm/dL (13.5-18.0) L 10/15/18 02:40 Hct 34.9 % (42.0-52.0) L 10/15/18 02:40 MCV 89.7 fl (78-100) 10/15/18 02:40 MCH 28.3 pg (27-31) 10/15/18 02:40 MCHC 31.5 g/dl (32-36) L 10/15/18 02:40 RDW 14.9 % (11.5-14.0) H 10/15/18 02:40 Plt Count 469 K/mm3 (150-450) H 10/15/18 02:40 MPV 9.0 fl (8-11.3) 10/15/18 02:40 73 % (42-75) 10/15/18 02:40 19 % (20-51) L 10/15/18 02:40 6 % (0-9) 10/15/18 02:40 1 (0-1) 10/15/18 02:40 13.8 K/mm3 (1.3-6.0) H 10/15/18 02:40 3.6 k/mm3 (1.5-3.5) H 10/15/18 02:40 1.1 k/mm3 (0.0-1.0) H 10/15/18 02:40 Atypic/Reactive Lymphs 1 % (0-2) 10/15/18 02:40 Trace 10/15/18 02:40 1+ 10/15/18 02:40 Trace 10/15/18 02:40 pCO2 32.3 mmHg (35.0-48.0) L 10/15/18 03:15 pO2 70.2 mmHg (83.0-108.0) L 10/15/18 03:15 HCO3 23.5 mmol/L (21.0-28.0) 10/15/18 03:15 Total CO2 24.5 mmol/L (19.0-24.0) H 10/15/18 03:15 Base Excess 0.5 mmol/L (-2.0-3.0) 10/15/18 03:15 ABG pH 7.48 (7.35-7.45) H 10/15/18 03:15 ABG O2 Sat (Measured) 95.3 % (94.0-98.0) 10/15/18 03:15 Sodium 142 mmol/L (132-142) 10/15/18 02:40 142 mmol/L (130-142) 10/15/18 02:40 Potassium 3.9 mmol/L (3.4-4.6) 10/15/18 02:40 Chloride 103 mmol/L (97-106) 10/15/18 02:40 Carbon Dioxide 25.4 mmol/L (24-32.6) 10/15/18 02:40 17.5 mmol/L (6.8-13.8) H 10/15/18 02:40 BUN 44 mg/dL (6-23) H D 10/15/18 02:40 1.26 mg/dL (0.4-1.4) 10/15/18 02:40 Est GFR (Non-Af Amer) 61 mL/min (60-130) 10/15/18 02:40 34.9 (9.0-21.6) H 10/15/18 02:40 120 mg/dL (70-110) H 10/15/18 02:40 1.7 mmol/L (0.4-2.0) 10/15/18 06:25 Calcium 7.7 mg/dL (7.9-10.9) L 10/15/18 02:40 Calcium Adj for Albumin 8.5 mg/dL (8.4-10.2) 10/15/18 02:40 0.3 mg/dL (0.0-1.1) 10/15/18 02:40 AST 62 U/L (0-48) H 10/15/18 02:40 ALT 71 U/L (19-67) H 10/15/18 02:40 146 U/L (50-170) 10/15/18 02:40 0.059 ng/mL (0.00-0.10) 10/15/18 02:40 B-Natriuretic Peptide 08677 pg/mL (5-350) H 10/15/18 02:40 7.2 gm/dL (6.2-8.2) 10/15/18 02:40 2.6 gm/dl (3.4-5.0) L 10/15/18 02:40 Assessment/Plan - Narrative Narrative: Patient recently discharged for Pneumonia/CHF from [facility] presented with increasing SOB, hypoxia and interval worsening of pulmonary congestion and probable multifocal pneumonia on CXR. Will continue with IV Cefepime and Vancomycin as he had recent hospitalization for hemicolectomy for colon cancer. He id not have significant clinical response with Levaquin. Will continue with IV diuresis and will order an Echocardiogram if not done with is recent hospitalization in [facility]. - Assessment/Plan (1) Pneumonia Problem: Acute (2) CHF (congestive heart failure) Assessment: acute exacerbation Problem: Acute Qualifiers: Heart failure type: systolic Heart failure chronicity: acute on chronic Qualified Code(s): I50.23 - Acute on chronic systolic (congestive) heart failure (3) COPD (chronic obstructive pulmonary disease) Problem: Acute Qualifiers: COPD type: COPD with acute lower respiratory infection Qualified Code(s): J44.0 - Chronic obstructive pulmonary disease with acute lower respiratory infection (4) Peripheral vascular disease Problem: Acute (5) Hypertension Problem: Acute
[2018-10-15] MEDS ORDERED: CLOPIDOGREL BISULFATE 75 MG TABLET PO SCH (09:00)
[2018-10-15] MEDS ORDERED: ASPIRIN 325 MG TABLET.DR PO SCH (09:00)
[2018-10-15] MEDS ORDERED: ENOXAPARIN SODIUM 40 MG/0.4 ML SYRG SC SCH (09:00)
[2018-10-15] MEDS ORDERED: MULTIVITAMINS 1 CAP CAPSULE PO SCH (09:15)
[2018-10-15] MEDS ORDERED: POTASSIUM CHLORIDE 20 MEQ TABLET.SA PO SCH (09:15)
[2018-10-15] MEDS ORDERED: VANCOMYCIN HCL 1 GM in DEXTROSE 5 % IN WATER 250 ML IV SCH ×2 (10:00)
[2018-10-15] MEDS: SACCHAROMYCES BOULARDII 250 MG CAPSULE PO SCH ×2 (10:21→20:51)
[2018-10-15] MEDS: METHYLPREDNISOLONE SOD SUCC/PF 40 MG/ML VIAL IV SCH ×3 (10:21→20:51)
[2018-10-15] MEDS ORDERED: FUROSEMIDE 10 MG/ML VIAL IV SCH (11:15)
[2018-10-15] MEDS ORDERED: ALBUTEROL SULFATE 2.5 MG/0.5 ML VIAL.NEB IH PRN (14:14)
[2018-10-15 14:39] LABS: Hematocrit 35.8 % (42.0-52.0); Hemoglobin 11.5 gm/dL (13.5-18.0); Mean Corpuscular Hemoglobin 28.3 pg (27-31); Mean Corpuscular Hgb Conc 32.1 g/dl (32-36); Mean Platelet Volume 9.1 fl (8-11.3); Neutrophil # 12.4 K/mm3 (1.3-6.0); Neutrophil % 87.6 % (42-75.0); Platelet Count 467 K/mm3 (150-450); Red Blood Count 4.07 M/mm3 (4.7-6.0); Red Cell Distribution Width 14.6 % (11.5-14.0); White Blood Count 14.2 K/mm3 (4.0-10.5)
[2018-10-15] MEDS: CEFEPIME HCL 1 GM in DEXTROSE 5 % IN WATER 100 ML IV SCH ×2 (15:33)
[2018-10-15] MEDS: VANCOMYCIN HCL 1 GM in DEXTROSE 5 % IN WATER 250 ML IV SCH ×2 (16:20)
[2018-10-15] MEDS ORDERED: PRAMIPEXOLE DI-HCL 0.5 MG TABLET PO SCH (21:00)
[2018-10-16] MEDS: METHYLPREDNISOLONE SOD SUCC/PF 40 MG/ML VIAL IV SCH (04:21)
[2018-10-16] MEDS: CEFEPIME HCL 1 GM in DEXTROSE 5 % IN WATER 100 ML IV SCH ×2 (04:21)
[2018-10-16] MEDS: VANCOMYCIN HCL 1 GM in DEXTROSE 5 % IN WATER 250 ML IV SCH ×2 (05:04)
[2018-10-16 05:41] LABS: Hematocrit 32.8 % (42.0-52.0); Hemoglobin 10.8 gm/dL (13.5-18.0); Mean Cell Volume 88.9 fl (78-100); Mean Corpuscular Hemoglobin 29.3 pg (27-31); Mean Corpuscular Hgb Conc 32.9 g/dl (32-36); Mean Platelet Volume 9.3 fl (8-11.3); Neutrophil % 81.7 % (42-75.0); Platelet Count 446 K/mm3 (150-450); Red Blood Count 3.69 M/mm3 (4.7-6.0); Red Cell Distribution Width 14.5 % (11.5-14.0); White Blood Count 12.2 K/mm3 (4.0-10.5)
[2018-10-16 05:43] LABS: Anion Gap 15.7 mmol/L (6.8-13.8); BUN/Creatinine Ratio 38.1 (9.0-21.6); Carbon Dioxide 27.8 mmol/L (24-32.6); Estimated Creat Clear 55.8; Potassium 4.5 mmol/L (3.4-4.6)
[2018-10-16 06:38] VITALS: BP 95/67
--- NOTE | 2018-10-16 08:22 | PN ---
Guillermo Note - Interim Date: 10/16/18 Time: 08:15 Narrative: 10/16/18 08:15 Patient is all dressed up and ready to go home. Bags packed. He has significantly clinically improved but I told him that if he will go home it will be AMA . Agrees to have CXR before going home.
--- NOTE | 2018-10-16 08:25 | DS ---
(1) Pneumonia Diagnosis(s): with acute respiratory failure, hypoxia type Problem: Acute (2) CHF (congestive heart failure) Problem: Acute Qualifiers: Heart failure type: combined systolic and diastolic Heart failure chronicity: acute on chronic Qualified Code(s): I50.43 - Acute on chronic combined systolic (congestive) and diastolic (congestive) heart failure (3) COPD (chronic obstructive pulmonary disease) Problem: Acute Qualifiers: COPD type: COPD with acute lower respiratory infection Qualified Code(s): J44.0 - Chronic obstructive pulmonary disease with acute lower respiratory infection (4) Peripheral vascular disease Problem: Chronic (5) Hypertension Problem: Chronic Qualifiers: Hypertension type: essential hypertension Qualified Code(s): I10 - Essential (primary) hypertension (6) Pulmonary nodule Problem: Suspected Description of Stay: Erick White is a 68-year-old white male, patient of Dr. Shelton in [place], with past medical history of hypertension, peripheral vascular disease, who was admitted on 10/15/2018 because of increasing shortness of breath. 15 days prior to admission the patient recently had a colon resection for colon cancer with end-to-end anastomosis. 5 days prior to admission the patient started having increasing shortness of breath with some cough associated with wheezing. The patient went to our emergency room and was transferred to [facility] where he was admitted and discharged after 3 to 4days after being diure sed with Lasix and treated with antibiotic for CHF and pneumonia. Patient said he was discharged on prednisone, Levaquin 500 mg PO Q daily x 3 more days, and on his albuterol inhaler. One day prior to admission the patient started again to have shortness of breath and so he went back to our emergency room were he was needing 4 L of oxygen to keep his oxygen saturation in the 90s. His ABG showed 7.48/32.3/70.2/23.5/95% on 4 L NC. His checks x-ray showed worsening of his pulmonary vascular congestion suggestive of pulmonary edema but cannot rule out also multifocal pneumonia. His white blood cell count was 18,000. He denied fever,, chills, chest pain, palpitations but admits to orthopnea. He admits to weight gain but denied leg edema. He was admitted and started with IV lasix for diuresis and IV cefepime and IV vancomycin. His Echo in [facility] showe decreased EF, 40=45 % with diastolic dysfunction. He received 2 doses of of his IV antibiotics and is wanting to go home AMA today as he is clinically feeling better not desaturating with ambulation in the hallways. We will discharge him on Levaquin 750 mg PO q daily x 5 more days as he did grow Klebsiella Pneumonia ( positive sensitivity) on his sputum culture at [facility] and cover possible Pseudomonas with this higher dose, and Lasix 40 mg PO BID. Keep his appointment with pulmonology and cardiology in [facility] and his PCP. PATIENT IS GOING HOME AMA. Procedures Performed: none Results and Findings: Pending Mircobiology Results 10/15/18 03:20 Blood Blood Culture - Preliminary NO GROWTH 24 HOURS 10/15/18 02:40 Blood Blood Culture - Preliminary NO GROWTH 24 HOURS Lab Pending Results 10/15/18 02:40: WBC 18.9 H, RBC 3.89 L, Hgb 11.0 L, Hct 34.9 L, MCV 89.7, MCH 28.3, MCHC 31.5 L, RDW 14.9 H, Plt Count 469 H, MPV 9.0, Neutrophils % (Manual) 73, Lymphocytes % (Manual) 19 L, Monocytes % (Manual) 6, Immature Granulocytes 1, Neutrophils # (Manual) 13.8 H, Lymphocytes # (Manual) 3.6 H, Monocytes # (Manual) 1.1 H, Atypic/Reactive Lymphs 1, Dohle Bodies Trace, [place] Cells 1+, Elliptocytes Trace 10/15/18 02:40: Sodium 142, Plasma Sodium 142, Potassium 3.9, Chloride 103, Carbon Dioxide 25.4, Anion Gap 17.5 H, BUN 44 H D, Creatinine 1.26, Est GFR (Non-Af Amer) 61, BUN/Creatinine Ratio 34.9 H, Random Glucose 120 H, Calcium 7.7 L, Calcium Adj for Albumin 8.5, Total Bilirubin 0.3, AST 62 H, ALT 71 H, Alkaline Phosphatase 146, Troponin I 0.059, B-Natriuretic Peptide 92698 H, Total Protein 7.2, Albumin 2.6 L 10/15/18 02:40: Lactic Acid, Venous 2.1 H 10/15/18 03:15: pCO2 32.3 L, pO2 70.2 L, HCO3 23.5, Total CO2 24.5 H, Base Excess 0.5, ABG pH 7.48 H, ABG O2 Sat (Measured) 95.3 10/15/18 06:25: Lactic Acid, Venous 1.7 10/15/18 14:26: WBC 14.2 H D, RBC 4.07 L, Hgb 11.5 L, Hct 35.8 L, MCV 88.0, MCH 28.3, MCHC 32.1, RDW 14.6 H, Plt Count 467 H, MPV 9.1, Immature Gran % (Auto) 0.50 H, Immature Gran # (Auto) 0.07 H, Neutrophils % 87.6 H, Lymphocytes % 7.2 L, Monocytes % 4.6, Eosinophils % 0.0, Basophils % 0.1, Nucleated RBC % 0.0, Neutrophils # 12.4 H, Lymphocytes # 1.02 L, Monocytes # 0.7, Eosinophils # 0.0, Absolute Basophils 0.0 10/16/18 05:10: Sodium 138, Plasma Sodium 138, Potassium 4.5, Chloride 99, Carbon Dioxide 27.8, Anion Gap 15.7 H, BUN 48 H, Creatinine 1.26, Est GFR (Non- Af Amer) 61, BUN/Creatinine Ratio 38.1 H, Random Glucose 128 H, Calcium 7.0 L 10/16/18 05:10: WBC 12.2 H, RBC 3.69 L, Hgb 10.8 L, Hct 32.8 L, MCV 88.9, MCH 29.3, MCHC 32.9, RDW 14.5 H, Plt Count 446, MPV 9.3, Immature Gran % (Auto) 1.10 H, Immature Gran # (Auto) 0.14 H, Neutrophils % 81.7 H, Lymphocytes % 10.1 L, Monocytes % 7.0, Eosinophils % 0.0, Basophils % 0.1, Nucleated RBC % 0.0, Neutrophils # 10.0 H, Lymphocytes # 1.23 L, Monocytes # 0.9, Eosinophils # 0.0, Absolute Basophils 0.0 Discharge Location: Home Disposition: Home self-care Condition: Fair Discharge Activity: Activity as tolerated Discharge Diet: Low salt Referrals: Isidro Shelton DO [Primary Care Provider] - Additional Patient Instructions (free text): -Please make TCM appointment unless long term discharge, or if following up with outside provider. Thank you! Karmen @ [phone] or Malissa at [phone]. Prescriptions (Any new or edited meds): Levofloxacin [Levaquin] 750 mg PO DAILY@1100 #5 tab Complete Home Medications List: Complete Home Medication List: Albuterol Sulfate [Ventolin HFA] 1 puff INHALATION QID 10/15/18 Aspirin [Aspirin Enteric Coated] 325 mg PO DAILY 10/15/18 Clopidogrel Bisulfate [Plavix] 75 mg PO DAILY 10/15/18 Furosemide [Lasix] 40 mg PO BID 10/15/18 HYDROcodone/ACETAMINOPHEN [[place] 5-325] 1 tab PO Q6H PRN 10/15/18 Multivitamin [One Daily] 1 tab PO DAILY 10/15/18 Potassium Chloride [K-Tab ER] 20 meq PO DAILY 10/15/18 Pramipexole Di-HCl [Pramipexole Dihydrochloride] 1 mg PO HS 10/15/18 Saccharomyces Boulardii [Florastor] 250 mg PO BID 10/15/18 predniSONE [Prednisone] 2 tab PO DAILY 10/15/18 Levofloxacin [Levaquin] 750 mg PO DAILY@1100 #5 tab 10/16/18
[2018-10-16] MEDS ORDERED: FUROSEMIDE 10 MG/ML VIAL IV SCH (09:00)
[2018-10-16] MEDS ORDERED: LEVOFLOXACIN 750 MG TABLET PO SCH (11:00)
[2018-10-16] MEDS ORDERED: PRAMIPEXOLE DI-HCL 0.5 MG TABLET PO SCH (16:00)
== END 2018-10-16 08:45 | disposition left against medical advice (07) | DRG 177 ==
LOC: ER 02:11 → MS 03:46
PROVIDERS: ADMIT Internal Medicine; ATTEND Internal Medicine
CPT/HCPCS: 36415; 36600; 71010; 71020; 71045; 71046; 80048; 80053; 82803; 83519; 83605; 83880; 84484; 85025; 87040; 93005; 94640; 94664; 94760; 96374; 99285